=== PATIENT | female | born 1995 | race Two or more races ===

== ENCOUNTER 2024-08-29 16:49 | Emergency (ER) | payer MEDICAID ==
[~2024-08-29] VITALS: Ht 162.6 cm; Wt 91.7 kg
[2024-08-29 16:55] VITALS: TEMP 98.9
[2024-08-29 18:05] LABS: MEAN PLATELET VOLUME 9.9 FL (7.4-10.4); RED CELL DISTRIBUTION WIDTH 13.7 % (11.5-14.5)
[2024-08-29 18:20] LABS: CREATININE 0.94 MG/DL (0.40-0.90); TOTAL CARBON DIOXIDE 26.7 MMOL/L (24-32); eCRCL 76 ML/MIN; eGFR 70 ML/MIN
[2024-08-29 19:00] LABS: LEUKOCYTE ESTERASE ,URINE MODERATE (Neg); NITRITES, URINE POSITIVE (Neg); OCCULT BLOOD,URINE MODERATE (Neg)
[2024-08-29 19:03] LABS: URINE HCG NEGATIVE (NEG)
[2024-08-29 19:09] LABS: UA COLLECTION TYPE CLN CATCH MIDSTREAM
[2024-08-29 19:11] LABS: MUCUS STRANDS FEW /LPF (Neg); SQUAMOUS EPITHELIAL CELL,UR MODERATE /LPF (FEW)
[2024-08-29 19:24] VITALS: BP 128/75; PULSE 98; RESP 15; O2SAT 99
[2024-08-29] MEDS ORDERED: PHEN-824 PO (19:39)
[2024-08-29] MEDS ORDERED: NITR100C6 PO (19:40)
--- NOTE | 2024-08-29 19:40 | Physician Documentation ---
History of Present Illness ~ Chief Complaint: Urinary Symptoms Stated Complaint: GROIN PAIN Time Seen by MD: 19:11 HPI Patient is seen today with complaints of suprapubic discomfort with associated dysuria and urinary frequency and urgency that started around 2:00 a.m. this morning. Patient does admit to previous history of urinary tract infections. Patient denies any flank pain states she does feel chills. She denies any chest pain or shortness of breath or nausea, vomiting, diarrhea. She has no other concern or complaint at this time. Medication Reconciliation Allergies: Coded Allergies: avocado (Unverified Allergy, Unknown, 08/29/24) cantaloupe (Unverified Allergy, Unknown, 08/29/24) cucumber (Unverified Allergy, Unknown, 08/29/24) watermelon (Unverified Allergy, Unknown, 08/29/24) Review of Systems Constitutional: Denies: chills, fever, weakness Eyes: Denies: pain, blurred vision ENT: Denies: ear pain, nose pain, throat pain, mouth pain Respiratory: Denies: cough, shortness of breath Cardiovascular: Denies: chest pain, palpitations Gastrointestinal: Denies: abdominal pain, nausea, vomiting Genitourinary: Denies: burning, dysuria Female Genitalia: Denies: vaginal discharge, pelvic pain Neurological: Denies: headache, dizziness Musculoskeletal: Denies: pain, swelling Integumentary: Denies: rash, lesions Allergic/Immunologic: Denies: hives, itching Hematologic/Lymphatic: Denies: no symptoms reported Psychiatric: Denies: depression, anxiety Physical Exam Vital Signs: Temperature: 98.9, Source: Temporal, Heart Rate: 98, Respiratory Rate: 15, BP: 128/75, Pulse Oximetry: 99, Weight: 91.700 Oxygen Flow Rate: 0 Physical Exam General: Awake and Alert, no acute distress. HEENT: Conjunctiva pink, Sclera clear, Mucus Membranes moist. Neck: Supple without masses and tenderness. Resp: Unlabored. Lungs clear to auscultation bilaterally. Heart: Regular Rate and rhythm, normal S1 and S2 without murmur, rub or gallop. Abdomen: Abdomen is soft, nondistended, mild tenderness to palpation in the suprapubic area without any other tenderness in any other quadrant. Patient has no CVA tenderness bilaterally. No rebound tenderness and no guarding. Extremities: No cyanosis,clubbing or edema. Skin: Warm and Dry. Progress Results/Orders Results/Orders Vital Signs 08/29/24 08/29/24 16:55 19:24 Temp 98.9 Pulse 106 98 Resp 20 15 B/P (MAP) 136/77 128/75 (92) Pulse Ox 95 99 O2 Flow Rate 0 Laboratory Tests Test 08/29/24 17:32 08/29/24 18:47 White Blood Count 13.1 H Red Blood Count 4.70 Hemoglobin 13.8 Hematocrit 40.5 Mean Corpuscular Volume 86.2 Mean Corpuscular Hemoglobin 29.3 Mean Corpuscular Hemoglobin Concent 34.0 Red Cell Distribution Width 13.7 Platelet Count 264 Mean Platelet Volume 9.9 Neutrophils (%) (Auto) 80.5 H Lymphocytes (%) (Auto) 10.0 L Monocytes (%) (Auto) 6.8 Eosinophils (%) (Auto) 2.5 Basophils (%) (Auto) 0.2 Neutrophils # (Auto) 10.5 H Lymphocytes # (Auto) 1.3 Monocytes # (Auto) 0.9 Eosinophils # (Auto) 0.3 Basophils # (Auto) 0.0 CBC Comment Sodium Level 140 Potassium Level 4.4 Chloride Level 106 Carbon Dioxide Level 26.7 Anion Gap 7 L Blood Urea Nitrogen 10 Creatinine 0.94 H Estimated GFR/1.73 m2 70 BUN/Creatinine Ratio 10.6 Glucose Level 101 Calcium Level 8.9 Total Bilirubin 0.6 Aspartate Amino Transf (AST/SGOT) 16 Alanine Aminotransferase (ALT/SGPT) 18 Alkaline Phosphatase 84 Total Protein 8.3 H Albumin 4.2 Globulin 4.1 Albumin/Globulin Ratio 1.0 L Lipase 32 Chemistry Comments Urine Specimen Description Cln catch midstream Urine Color Yellow Urine Clarity Cloudy Urine pH 6.0 Urine Specific [place] 1.025 Urine Protein 100 H Urine Glucose (UA) Negative Urine Ketones Negative Urine Occult Blood Moderate H Urine Nitrite Positive H Urine Bilirubin Negative Urine Urobilinogen 0.2 Urine Leukocyte Esterase Moderate H Urine RBC 20-50 Urine WBC 30-50 H Urine Squamous Epithelial Cells Moderate Urine Bacteria 2+ Urine Mucus Few Urine Culture Indicated Indicated Volume Urine Centrifuged 10 ml Urine HCG, Qualitative Negative Urine Comment Medical Decision Making Findings Patient is seen today with complaints of suprapubic discomfort with associated dysuria and urinary frequency and urgency that started around 2:00 a.m. this morning. Patient does admit to previous history of urinary tract infections. Patient denies any flank pain states she does feel chills. She denies any chest pain or shortness of breath or nausea, vomiting, diarrhea. She has no other concern or complaint at this time. Urinalysis was highly indicative of urinary tract infection with positive nitrites and positive leukocyte esterase and positive bacteria. 1 g of Rocephin IM given in the ED tonight along with Pyridium 200 mg by mouth. Prescription of Pyridium and nitrofurantoin sent to patient's pharmacy. Patient will follow up with primary care in 2-5 days if no better as needed sooner. Return to ED with any worsening, concerning or changing symptoms. Departure Disposition: HOME / SELF CARE / HOMELESS Impression: Primary Impression: Acute urinary tract infection Condition: Improved Discharge Instructions: Urinary Tract Infection, Adult Additional Instructions: Urinalysis was highly indicative of urinary tract infection with positive nitrites and positive leukocyte esterase and positive bacteria. 1 g of Rocephin IM given in the ED tonight along with Pyridium 200 mg by mouth. Prescription of Pyridium and nitrofurantoin sent to patient's pharmacy. Patient will follow up with primary care in 2-5 days if no better as needed sooner. Return to ED with any worsening, concerning or changing symptoms. Referrals: NO PRIMARY CARE PROVIDER (PCP) Prescriptions Nitrofurantoin Monohyd/M-Cryst (Macrobid 100 mg Capsule) 100 Mg Capsule 1 CAP PO Q12H for 5 Days, #10 CAP 0 Refills Prov: GRACIE ANDRADE 08/29/24 Phenazopyridine HCl (Pyridium) 100 Mg Tablet 1 TAB PO Q8H for urinary discomfort for 3 Days, #9 TAB 0 Refills Prov: GRACIE ANDRADE 08/29/24 Signature Scribe Signature: No scribe Attestation: No scribe GRACIE ANDRADE Aug 29, 2024 19:39
[2024-08-29] MEDS: CefTRIAXone 1000mg IM Kit (w/lidocaine diluent) IM ONE (19:47)
[2024-08-29] MEDS: phenazopyridine 100mg tablet PO STA (19:47)
== END 2024-08-29 19:49 | disposition home or self-care (01) ==
LOC: ER 16:51
DX: N39.0 Urinary tract infection, site not specified (principal); Z91.018 Allergy to other foods
CPT/HCPCS: 36415; 80053; 81001; 81025; 83690; 85025; 87088; 87186; 96372; 99283; J0696; 87077